=== PATIENT | male | born 2000 | race Two or more races ===

== ENCOUNTER 2021-11-27 10:28 | Emergency (ER) | payer SELFPAY ==
[~2021-11-27] VITALS: Ht 177.8 cm; Wt 105.4 kg
[2021-11-27 11:14] VITALS: BP 133/95
[2021-11-27] MEDS ORDERED: IBUPROFEN 800 MG TAB PO ONE (11:45)
[2021-11-27] MEDS ORDERED: IBUP800T27 PO (11:52)
== END 2021-11-27 12:17 | disposition home or self-care (01) ==
LOC: ER 10:28
DX: S60.222A Contusion of left hand, initial encounter (principal); W22.8XXA Striking against or struck by other objects, initial encounter; Y93.89 Activity, other specified; Y92.89 Other specified places as the place of occurrence of the external cause; Y99.8 Other external cause status
CPT/HCPCS: 73130